=== PATIENT | female | born 1990 | race African-American/Black ===

== ENCOUNTER 2023-11-08 00:52 | Inpatient (IN) ==
--- NOTE | 2023-11-08 03:11 | History & Physical Report ---
Date of Service November 08, 2023 Assessment & Plan (1) 37 weeks gestation of : (2) Uterine contractions: Plan so far no evidence of active labor. offered dc home vs. obs here and recheck cx in 2hr (or sooner if pt feels sx escalating). couple seemed shocked she was not in labor given that she was having frequent ctx, explained definition of labor and typical findings exam and monitor that define active labor for which pts are admitted. she did not feel that she could walk or move around--her partner told me she cannot move--which is fine but she can be off monitor intermittently per unit policy. will need to reeval bp and if remains elevated with recommended parameters to check, will need to further evaluate that. nst reactive. addendum: nurse just called and said recheck at 2hr is unchanged cx. rec eval of bp sitting after 5-10min and if elevated will need to do further evaluation. either way will be up to pt if wants to stay for another 2hr period for recheck cx. History of Present Illness Chief Complaint: contractions Primary Care Provider: Margarita Acevedo MD 33yo at 37wks alla presents to L&D as unassigned patient with complaints of regular contractions. Patient notes contractions that are painful q2-3min, she can't "move" due to contractions. No rom. No vb. She is under the care of [facility] group but with her painful ctx x 1hr was afraid to drive 30min to their facility. Apparently she plans her delivery with [facility] in [place] and has induction scheduled for . She notes her has been complicated by GDM on insulin, says last u/s baby was 7#. She is taking only bedtime insulin but forgot to take tonight. She also missed her last appt and did not get gbs swab yet. Otherwise she says her has been uncomplicated. No available records or labs. OBH: x 3, all at term. Looking at her pmh in our system she apparently had preeclampsia in her 3rd pre gnancy. And with this had a cerclage that was removed at 28wks. Allergies Allergy/AdvReac Type Severity Reaction Status Date / Time Sulfa (Sulfonamide Allergy Intermediate Hives Verified 10/26/23 15:21 Antibiotics) sulfamethoxazole Allergy Intermediate Hives Verified 10/26/23 15:21 [From Bactrim] trimethoprim [From Bactrim] Allergy Intermediate Hives Verified 10/26/23 15:21 bee pollen AdvReac Hives Verified 10/26/23 15:21 Home Medications Medication Instructions Recorded Confirmed Type aspirin 81 mg capsule 81 mg PO DAILY 07/22/23 11/08/23 History insulin glargine 100 unit/mL 42 unit subcut PM 07/22/23 11/08/23 History subcutaneous cartridge [id number] 1 mg 1 tab PO DAILY 07/22/23 11/08/23 History tablet acetaminophen 500 mg capsule 500 mg PO Q6H PRN Pain 10/26/23 11/08/23 History diphenhydramine HCl 25 mg capsule 25 mg PO HS PRN Allergy Symptoms 10/26/23 11/08/23 History (Benadryl) Patient History Medical History (Updated 11/08/23 @ 03:06 by Pallavi Hamilton MD, FACOG) LGA (large for gestational age) fetus affecting management of mother measuring in 94% Cervical cerclage suture present Removed 2023 Pre-eclampsia with 3rd Incompetence of cervix with 3 rd Gestational diabetes insulin dependent Chronic sinusitis Snoring No pertinent past medical history No pertinent family history Surgical History No pertinent past surgical history Family History Mother Bipolar disorder Social History Smoking Status: Former smoker Tobacco Type: Cigarettes Hx Alcohol Use: No Hx Substance Use: No Preferred Language: Spanish Communication Ability: Effective Mva Still Operator Required: No Beliefs That Will Affect Care: None marital status: Current Living Situation: Family and Significant Other Feels Safe at Home: Yes Safety Concerns: Feels Safe At This Time Review of Systems as per Subjective / HPI Physical Exam Constitutional: WD/WN, vitals as above Respiratory: normal respiratory effort, lungs clear to auscultation Cardiovascular: Rate/Rhythm: regular rate and regular rhythm Gastrointestinal (Abdomen): soft gravid nt efw 7# Musculoskeletal: no edema Neurologic: grossly normal Psychiatric: A+Ox3, euthymic affect Genitourinary: Manual OB Exam: + cervical dilation (2), + cervical effacement 60% and + station (per nurse) -2 OB Exam Monitor Tracing: + external FHT monitor used, + external uterine monitor used (q2-4), + category I and + normal FHT variability Results & Data Vital Signs (Past 12 Hours) Vital Signs Temp Pulse Resp BP 11/08/23 02:07 93 H 144/77 H 11/08/23 01:12 93 H 141/80 H 11/08/23 01:11 99.7 F H 20 Coding Level of Care Code None Diagnoses 37 weeks gestation of Z3A.37 Uterine contractions O47.9
[2023-11-08 04:14] LABS: Basophils # (auto) 0.07 K/uL (0.00-0.20); Basophils % (auto) 0.4 %; Eosinophils # (auto) 0.08 K/uL (0.00-0.50); Eosinophils % (auto) 0.5 %; Hematocrit (blood only) 37.6 % (37.0-47.0); Hemoglobin 11.5 g/dl (12.0-16.0); Immature Granulocytes # (auto) 0.09 K/uL (0.01-0.20); Immature Granulocytes % (auto) 0.6 %; Lymphocytes # (auto) 2.61 K/uL (1.20-3.40); Lymphocytes % (auto) 16.6 %; Mean Corpuscular Hemoglobin 25.4 pg (25.0-34.0); Mean Corpuscular Hgb Conc 30.6 g/dL (32.0-36.0); Monocytes # (auto) 0.89 K/uL (0.11-0.59); Monocytes % (auto) 5.7 %; Neutrophils # (auto) 11.95 K/uL (1.40-6.50); Neutrophils % (auto) 76.2 %; Platelet Count 273 K/uL (130-400); RDW Coefficient of Variation 14.6 % (11.5-14.5); RDW Standard Deviation 43.5 fL (36.4-46.3); Red Blood Count 4.53 M/uL (4.20-5.40); White Blood Count 15.69 K/ul (4.8-10.8)
[2023-11-08 04:25] LABS: Albumin Globulin Ratio 1.1 (0.9-2); Albumin Level 3.7 gm/dl (3.4-5.0); BUN Creatinine Ratio 10.8 (10-20); Bilirubin Direct 0.1 mg/dl (0-0.2); Bilirubin,Total 0.3 mg/dl (0.2-1.0); Calcium 9.3 mg/dl (8.6-10.3); Creatinine Clr Calc Pharmacy 116.1 ml/min; Est GFR (African American) 121.7 ml/min; Globulin 3.5 gm/dl (2.5-4.0); Potassium 4.1 mmol/L (3.5-5.1); Total Protein 7.2 gm/dl (6.0-8.3)
[2023-11-08 04:48] LABS: Total Protein Urine Random 16.9 mg/dl (0-11.9)
[2023-11-08 04:54] LABS: Creatinine Urine Random 108.1 mg/dl; Protein Creatinine Ratio Urine 0.2 (0-0.2)
[2023-11-08] MEDS: ACETAMINOPHEN 500 MG TAB PO STA (06:34)
--- NOTE | 2023-11-08 06:36 | Labor Progress Brief Note ---
Date of Service November 08, 2023 Subjective Pt has denied ervin or visual change. Is complaining of worsening ctx and desires recheck cx. of note, bp was elevated at 335am and so labs done and urine prot/creat ratio, all normal. she does have history of gest htn in prior . records are here, difficult to read but indicate last us at 32wks efw 94%, if did have one thereafter I cannot see report. no gbs done. gdm on insulin. Assessment & Plan (1) 37 weeks gestation of : (2) Uterine contractions: (3) Gestational diabetes mellitus (GDM) requiring insulin: (4) LGA (large for gestational age) fetus affecting management of mother: Plan discussed with couple that quite meeting criteria for dx of gest htn. labs normal. if she desired could be dc'd home and present to her desired hospital since that is where she wanted to deliver. i suspect further evaluation may lead to dx of gest htn for which induction indicated after 37wks. I know the weather overnight has not be the best and so we of course can keep her here for the further evaluation and if criteria met, discussed next steps and she would stay an [facility]. She strongly expressed concern for worsening labor and pain and strongly expressed no desire to drive anywhere. She asked for pain mgmt and offered tylenol for now. She will have her repeat bp at the 4hr interval at 735am and if criteria met she is aware I am going home and further decisions will be made by my partner. I do think her cx is changing but this is my first exam. She very clearly emphasizes to me that she has had to have her water broke with her labor and inductions as she dilates slow. Once again I reminded her that she has to show labor by cervical change, in active phase, to 4-6cm, given her ega for us to move along her labor, based on ACOG guidelines. However, if a diagnosis is made warranting induction at 37wks then we would re-discuss options for management then. She would like tylenol now and to get in shower to soothe her discomforts. She has no severe range bps and I think that is reasonable and [place]. fhts categ 1. Physical Exam Constitutional: WD/WN, vitals as above Genitourinary: Manual OB Exam: + cervical dilation (2-3), + cervical effacement 70% and + station -2 OB Exam Monitor Tracing: + external FHT monitor used, + external uterine monitor used (q3-6), + category I (nst reactive) and + normal FHT variability Results & Data Vital Signs (Past 12 Hours) Vital Signs Temp Pulse Resp BP 11/08/23 06:04 93 H 11/08/23 06:04 145/77 H 11/08/23 04:37 94 H 11/08/23 04:37 151/89 H 11/08/23 03:48 88 144/69 H 11/08/23 03:38 93 H 145/70 H 11/08/23 02:07 93 H 144/77 H 11/08/23 01:12 93 H 141/80 H 11/08/23 01:11 99.7 F H 20 Coding Level of Care Code None Diagnoses 37 weeks gestation of Z3A.37 Uterine contractions O47.9 Gestational diabetes mellitus (GDM) requiring insulin O24.414 LGA (large for gestational age) fetus affecting management of mother O36.60X0
[2023-11-08] MEDS ORDERED: SODIUM CHLORIDE 0.9% 1,000 ML IV PRN (09:27)
[2023-11-08] MEDS ORDERED: LIDOCAINE 1% LOCAL 20 ML VIAL INFIL PRN (09:27)
[2023-11-08] MEDS ORDERED: DEXTROSE 50% 50 ML SYRINGE IV PRN (09:27)
[2023-11-08] MEDS ORDERED: OXYTOCIN 30 UNITS/NSS 30 UNITS/500 ML BAG IV PRN ×2 (09:27→20:34)
--- NOTE | 2023-11-08 09:42 | Labor Progress Brief Note ---
Date of Service November 08, 2023 Subjective Reason For Note: Change In Status Patient getting more uncomfortable with her contractions. FHT's -reactive contractions are now every 2-3 minutes cervix 4cm/90/-2 Review of Systems All systems reviewed & are unremarkable except as noted in HPI & below Assessment & Plan (1) Normal labor: Plan: IUP at 37 weeks who arrived in L&D unassigned. Was getting care through [facility] but because of the snow last night came to [facility] to be evaluated because of contractions since we are a closer facility. she has now made cervical change confirming labor will admit now patient requesting epidural analgesia GBS obtained today as she missed that appointment last week. will treat prophylactically with PCN G she has GDM on insulin and taking 42 units at bedtime only. blood sugars have been good. will start GDM labor protocol. anticipate vaginal Physical Exam 2 Constitutional: WD/WN, vitals as above Psychiatric: A+Ox3, euthymic affect Results & Data Vital Signs (Past 12 Hours) Vital Signs Temp Pulse Resp BP 11/08/23 07:52 90 11/08/23 07:52 138/85 11/08/23 06:04 93 H 11/08/23 06:04 145/77 H 11/08/23 04:37 94 H 11/08/23 04:37 151/89 H 11/08/23 03:48 88 144/69 H 11/08/23 03:38 93 H 145/70 H 11/08/23 02:07 93 H 144/77 H 11/08/23 01:12 93 H 141/80 H 11/08/23 01:11 99.7 F H 20
[2023-11-08] MEDS: LACTATED RINGER'S 1,000 ML IV PRN (10:32)
[2023-11-08] MEDS: PENICILLIN GK 6 MU in DEXTROSE 5% 250 ML IV STA (10:32)
--- NOTE | 2023-11-08 11:11 | Anesthesiology Consultation ---
Date of Service November 08, 2023 Assessment & Plan Chart Review Chart Review: Acceptable Risk for Labor Epidural Consults Requested none ASA ASA2 Proposed Anesthesia Anesthesia Type: Labor Epidural Risk / Benefits Reviewed With: PT / POA / Parent / Guardian, Accepts Plan and Informed Consent Obtained History Height/Weight Height: 5 ft 1 in Weight: 101.605 kg Allergies Allergy/AdvReac Type Severity Reaction Status Date / Time Sulfa (Sulfonamide Allergy Intermediate Hives Verified 10/26/23 15:21 Antibiotics) sulfamethoxazole Allergy Intermediate Hives Verified 10/26/23 15:21 [From Bactrim] trimethoprim [From Bactrim] Allergy Intermediate Hives Verified 10/26/23 15:21 bee pollen AdvReac Hives Verified 10/26/23 15:21 Medications Home Medications Medication Instructions Recorded Confirmed Last Taken aspirin 81 mg capsule 81 mg PO DAILY 07/22/23 11/08/23 10/31/23 insulin glargine 100 unit/mL 42 unit subcut PM 07/22/23 11/08/23 11/06/23 21:00 subcutaneous cartridge [id number] 1 mg 1 tab PO DAILY 07/22/23 11/08/23 11/07/23 09:00 tablet acetaminophen 500 mg capsule 500 mg PO Q6H PRN Pain 10/26/23 11/08/23 10/26/23 12:00 diphenhydramine HCl 25 mg capsule 25 mg PO HS PRN Allergy Symptoms 10/26/23 11/08/23 11/07/23 (Benadryl) Active Medications Generic Name Dose Route Start Last Admin Trade Name Freq PRN Reason Stop Dose Admin Lactated Ringer's 1,000 mls @ 125 mls/hr 11/08/23 09:27 11/08/23 10:32 Lr IV 11/10/23 09:26 999 mls/hr .Q8H PRN Administration L&D Protocol Protocol Past Medical History Medical History LGA (large for gestational age) fetus affecting management of mother measuring in 94% Cervical cerclage suture present Removed 2023 Pre-eclampsia with 3rd Incompetence of cervix with 3 rd Gestational diabetes insulin dependent Chronic sinusitis Snoring No pertinent past medical history No pertinent family history Exercise / Class Metabolic Activity II 4-5 Yardwork/Stairs/Walk up hill Past Family History Family History Mother Bipolar disorder Past Surgical History Surgical History No pertinent past surgical history Past Anesthesia History No Hx of Anesthesia Complications and No Family Hx of Anesthesia Complications History of PONV No Hx of PONV and No Hx of Motion Sickness Social History Smoking Status: Former smoker Hx Alcohol Use: No Hx Substance Use: No substance use type: does not use Physical Exam Vital Signs Last Vital Signs Temp 99.7 F H 11/08/23 01:11 Pulse 92 H 11/08/23 10:05 Resp 20 11/08/23 11:00 BP 139/75 11/08/23 10:05 ENMT Mouth: no dentition abnormality Thyromental Distance: > or= 3.5 Finger Breadths Mallampati Class: II Neck normal visual inspection Respiratory normal respiratory effort Auscultation: lungs clear to auscultation bilaterally Cardiovascular Rate/Rhythm: regular rate and regular rhythm Testing Laboratory Results 11/08/23 03:58 11/08/23 03:58 11/08/23 09:42 POC Glucose 77
[2023-11-08] MEDS ORDERED: diphenhydrAMINE 50 MG/ML VIAL IV PRN ×2 (11:28→17:15)
[2023-11-08] MEDS ORDERED: ePHEDrine sulfate 50 MG/ML AMP IV PRN ×2 (11:28→17:15)
[2023-11-08] MEDS ORDERED: NALOXONE HCL 1 MG in SODIUM CHLORIDE 0.9% 1,000 ML IV PRN ×2 (11:28→17:15)
[2023-11-08] MEDS ORDERED: SODIUM CHLORIDE 0.9% PF INJ 10 ML VIAL EPI PRN ×2 (11:28→17:15)
[2023-11-08] MEDS ORDERED: NALBUPHINE HCL 5 MG in SYRINGE 0 ML IV PRN ×2 (11:28→17:15)
[2023-11-08] MEDS ORDERED: ONDANSETRON INJ 2 MG/ML 2 ML VIAL IV PRN ×2 (11:28→17:15)
[2023-11-08] MEDS ORDERED: NALOXONE HCL 0.4 MG/1 ML VIAL/CARP IV PRN ×2 (11:28→17:15)
[2023-11-08] MEDS ORDERED: LIDOCAINE 2% MPF LOCAL 5 ML VIAL EPI PRN ×2 (11:28→17:15)
[2023-11-08] MEDS ORDERED: fentaNYL citrate PF 100 MCG/2 ML VIAL EPI PRN ×2 (11:28→17:15)
[2023-11-08] MEDS ORDERED: ROPIVACAINE 0.5% PF 5 MG/ML 20 ML VIAL EPI PRN ×2 (11:28→17:15)
[2023-11-08] MEDS: fentaNYL citrate PF 100 MCG/2 ML VIAL ONE (11:29)
[2023-11-08] MEDS: BUPIVACAINE 0.25% PF 30 ML VIAL ONE (11:29)
[2023-11-08] MEDS: LIDOCAINE 2%/EPINEPHRINE 1:200,000 20 ML PF ONE (11:29)
[2023-11-08] MEDS: SODIUM CHLORIDE 0.9% PF INJ 10 ML VIAL ONE (11:30)
[2023-11-08] MEDS: fentANYL 2 MCG/ML BUPIVacaine 0.125%-NSS 100ML BAG ONE (11:31)
[2023-11-08] MEDS: DEXTROSE 5% 1,000 ML IV PRN (12:23)
[2023-11-08] MEDS: INSULIN REGULAR 250 UNITS in SODIUM CHLORIDE 0.9% 247.5 ML IV PRN (12:24)
[2023-11-08] MEDS: OXYTOCIN 30 UNITS/NSS 30 UNITS/500 ML BAG IV PRN (13:48)
[2023-11-08] MEDS: PENICILLIN GK 3 MU in DEXTROSE 5% 100 ML IV PRN (14:31)
[2023-11-08] MEDS: fentaNYL citrate PF 100 MCG/2 ML VIAL EPI STA ×2 (14:35→18:00)
[2023-11-08] MEDS: BUPIVACAINE 0.25% PF 30 ML VIAL EPI PRN ×2 (14:36→18:11)
--- NOTE | 2023-11-08 14:49 | Anesthesia Procedure Note ---
Date of Service November 08, 2023 Anesthesia Epidural Re-Dose Vital Signs Temp Pulse Resp BP Pulse Ox 98.6 F 85 20 128/80 98 11/08/23 13:51 11/08/23 14:45 11/08/23 13:51 11/08/23 14:45 11/08/23 14:44 Notes Pain Intensity: 5 Dilatation (cm): 4.0 Effacement (%): 100 Called by nursing to evaluate epidural as the patient is having increased pain. The epidural was re-dosed with the following medications after negative aspiration of the epidural catheter for CSF/HEME. 3mL of 0.25% Bupivacaine and 75mcg of fentanyl After Epidural Re-Dose Mental Status: alert / awake / arousable Pain: improving with treatment Airway Patency, RR, SpO2: stable & adequate BP & HR: stable & adequate
[2023-11-08] MEDS: ePHEDrine sulfate 50 MG/ML AMP ONE (14:58)
[2023-11-08] MEDS ORDERED: NURSING L&D Epidural Breakthrough Pain Update ONE (16:16)
[2023-11-08] MEDS: fentANYL 2 MCG/ML BUPIVacaine 0.125%-NSS 100ML BAG EPI PRN (16:48)
[2023-11-08] MEDS ORDERED: fentANYL 2 MCG/ML BUPIVacaine 0.125%-NSS 100ML BAG EPI PRN ×2 (17:15→18:19)
--- NOTE | 2023-11-08 17:21 | Anesthesia Procedure Note ---
Date of Service November 08, 2023 Anesthesia Epidural Re-Dose Vital Signs Temp Pulse Resp BP Pulse Ox 98.1 F 90 20 134/65 96 11/08/23 17:06 11/08/23 17:20 11/08/23 17:01 11/08/23 17:20 11/08/23 17:19 Notes Pain Intensity: 9 Dilatation (cm): 4.0 Effacement (%): 100 Called by nursing to evaluate epidural as the patient is having increased pain. The epidural was re-dosed with the following medications after negative aspiration of the epidural catheter for CSF/HEME. 4mL of 0.25% Bupivacaine After Epidural Re-Dose Mental Status: alert / awake / arousable Pain: improving with treatment Airway Patency, RR, SpO2: stable & adequate BP & HR: stable & adequate
[2023-11-08] MEDS: LIDOCAINE 2%/EPINEPHRINE 1:200,000 20 ML PF EPI STA ×2 (18:00→18:01)
[2023-11-08] MEDS: BUPIVACAINE 0.25% PF 30 ML VIAL EPI STA ×2 (18:00)
[2023-11-08] MEDS: SODIUM CHLORIDE 0.9% PF INJ 10 ML VIAL EPI STA ×2 (18:00→18:01)
[2023-11-08] MEDS ORDERED: bisacodyL 10 MG SUPP PR PRN (20:34)
[2023-11-08] MEDS ORDERED: HYDROCORTISONE ACETATE 25 MG SUPP PR PRN (20:34)
--- NOTE | 2023-11-08 20:36 | Anesthesia Procedure Note ---
Date of Service November 08, 2023 Anesthesia Post Epidural Note Vital Signs Vital Signs: Temp Pulse Resp BP Pulse Ox 36.8 C 100 H 18 119/79 97 11/08/23 19:06 11/08/23 20:32 11/08/23 19:06 11/08/23 20:32 11/08/23 20:19 Pain Intensity Abdomen: Pain Intensity: 2 Notes Mental Status: alert / awake / arousable and participated in evaluation Nausea / Vomiting: adequately controlled Pain: adequately controlled Airway Patency, RR, SpO2: stable & adequate BP & HR: stable & adequate Hydration State: stable & adequate Neuraxial Anesthesia: was administered and sensory block is resolving Anesthetic Complications: no major complications apparent Epidural: Removed without complications and With tip intact
--- NOTE | 2023-11-08 20:55 | Delivery Summary ---
Vaginal Delivery Summary Date of Service November 08, 2023 Vaginal Delivery Summary and 1st Degree LAC Patient is a 5 para 3-0-1-3 female EDC of 11/29/2025 who presented at 37 weeks with regular contractions. She is a patient at [facility] but lives in [place] and was having regular contractions during a snowstorm that was concerned about driving to [place] with the inclement weather. Of note, her was complicated by GDM on insulin. GBS status was unknown as she missed her 36-week appointment at which time she was also to have another growth scan. Growth scan at 32 weeks was 94th percentile. She eventually made cervical change to 4 cm dilation & 100% effacement. She requested epidural analgesia which was moderately effective through out her labor. She required Pitocin augmentation of her labor as her contractions spaced out after the epidural was administered. Membranes were then ruptured for clear fluid she progressed slowly to 7 cm dilation. After this, she progressed quickly to full dilation with the urge to push. She pushed effectively over intact perineum for delivery of a viable male infant. After the head was delivered, a double nuchal cord was reduced. Shoulders initially were tight, but with 1 good push the rest the infant delivered without difficulty. He was placed on the mother's abdomen for further attention and drying. He was vigorous, crying, and moving all 4 limbs. After 1 minute the cord was clamped and cut. After cord blood was obtained, the placenta was expressed intact with a three-vessel cord. Of note there was a small accessory lobe present as well. bleeding was controlled with dilute Pitocin and fundal massage. A first-degree perineal laceration was repaired with 3-0 chromic in usual fashion. Estimated blood loss was 250 cc. Mother and infant were doing well after delivery. [facility] Vaginal Delivery Charge Delivery Type Details: and 1st Degree LAC
[2023-11-08] MEDS: oxyCODONE/ACETAMINOPHEN 5mg/325mg TAB PO PRN (22:33)
[2023-11-08] MEDS: BENZOCAINE 20% SPRY 85 APPLN/85 GM CAN EXT PRN (22:33)
[2023-11-09] MEDS: CALCIUM CARBONATE 500 MG CHEWABLE TAB PO PRN (05:38)
[2023-11-09] MEDS: IBUPROFEN 600 MG TAB PO PRN (05:42)
--- NOTE | 2023-11-09 07:12 | Obstetrical Progress Note ---
Date of Service November 09, 2023 Assessment & Plan (1) Encounter for care and examination after delivery: satisfactory course continue current care plan Subjective Ambulation: ambulating normally Voiding: no voiding problems Passing Gas:: Yes Diet Tolerance:: regular diet Lochia:: Moderate Feeding Type:: breast feeding no complaints this AM except cramping with nursing Review of Systems All systems reviewed & are unremarkable except as noted in HPI & below Physical Exam Constitutional WD/WN, vitals as above Psychiatric A+Ox3, euthymic affect Genitourinary OB Exam Abdomen: + fundal height Fundus: + firm and + relation to umbilicus (at U) Results & Data Vital Signs (Past 12 Hours) Vital Signs Temp Pulse Pulse Resp BP BP Pulse Ox 11/09/23 03:35 97.5 F L 85 17 135/91 98 11/08/23 23:45 97.9 F 83 16 138/87 99 11/08/23 22:29 91 H 11/08/23 22:29 148/80 H 11/08/23 22:12 89 11/08/23 22:12 130/73 11/08/23 21:32 94 H 11/08/23 21:32 139/79 11/08/23 21:23 88 11/08/23 21:23 137/77 11/08/23 20:49 97 H 11/08/23 20:49 135/80 11/08/23 20:32 100 H 11/08/23 20:32 119/79 11/08/23 20:24 115 H 11/08/23 20:24 109/73 11/08/23 20:19 97 11/08/23 20:19 108 H 11/08/23 20:14 99 11/08/23 20:14 115 H 11/08/23 20:10 106 H 11/08/23 20:10 136/78 11/08/23 20:09 100 11/08/23 20:09 110 H 11/08/23 20:04 98 11/08/23 20:04 108 H 11/08/23 20:01 90 11/08/23 20:01 100 H 11/08/23 19:59 99 11/08/23 19:59 97 H 11/08/23 19:55 88 11/08/23 19:55 131/63 11/08/23 19:54 98 11/08/23 19:54 88 11/08/23 19:50 94 11/08/23 19:50 96 H 11/08/23 19:49 95 11/08/23 19:49 95 H 11/08/23 19:44 95 11/08/23 19:44 91 H 11/08/23 19:41 92 H 11/08/23 19:41 139/64 11/08/23 19:39 99 11/08/23 19:39 99 H 11/08/23 19:34 98 11/08/23 19:34 97 H 11/08/23 19:29 96 11/08/23 19:29 95 H 11/08/23 19:24 97 11/08/23 19:24 97 H 11/08/23 19:24 139/66 11/08/23 19:19 100 11/08/23 19:19 88 11/08/23 19:14 96 11/08/23 19:14 96 H O2 Del Method 11/09/23 03:35 Room Air 11/08/23 23:45 Room Air 11/08/23 22:29 11/08/23 22:29 11/08/23 22:12 11/08/23 22:12 11/08/23 21:32 11/08/23 21:32 11/08/23 21:23 11/08/23 21:23 11/08/23 20:49 11/08/23 20:49 11/08/23 20:32 11/08/23 20:32 11/08/23 20:24 11/08/23 20:24 11/08/23 20:19 11/08/23 20:19 11/08/23 20:14 11/08/23 20:14 11/08/23 20:10 11/08/23 20:10 11/08/23 20:09 11/08/23 20:09 11/08/23 20:04 11/08/23 20:04 11/08/23 20:01 11/08/23 20:01 11/08/23 19:59 11/08/23 19:59 11/08/23 19:55 11/08/23 19:55 11/08/23 19:54 11/08/23 19:54 11/08/23 19:50 11/08/23 19:50 11/08/23 19:49 11/08/23 19:49 11/08/23 19:44 11/08/23 19:44 11/08/23 19:41 11/08/23 19:41 11/08/23 19:39 11/08/23 19:39 11/08/23 19:34 11/08/23 19:34 11/08/23 19:29 11/08/23 19:29 11/08/23 19:24 11/08/23 19:24 11/08/23 19:24 11/08/23 19:19 11/08/23 19:19 11/08/23 19:14 11/08/23 19:14
[2023-11-09 07:29] LABS: Hematocrit (blood only) 33.7 % (37.0-47.0); Hemoglobin 10.7 g/dl (12.0-16.0); Mean Corpuscular Hemoglobin 25.9 pg (25.0-34.0); Mean Corpuscular Hgb Conc 31.8 g/dL (32.0-36.0); Mean Corpuscular Volume 81.6 fL (80.0-100.0); Mean Platelet Volume 11.5 fL (9.4-12.4); Platelet Count 241 K/uL (130-400); RDW Coefficient of Variation 14.6 % (11.5-14.5); RDW Standard Deviation 43.1 fL (36.4-46.3); Red Blood Count 4.13 M/uL (4.20-5.40); White Blood Count 15.08 K/ul (4.8-10.8)
[2023-11-09] MEDS: PRENATAL VITAMIN 1 TAB PO SCH (08:35)
[2023-11-09] MEDS: DOCUSATE SODIUM 100 MG CAP PO SCH (08:35)
[2023-11-09] MEDS: bisacodyL 5 MG TABEC PO SCH (19:56)
[2023-11-10 06:26] LABS: Hematocrit (blood only) 32.8 % (37.0-47.0); Hemoglobin 10.2 g/dl (12.0-16.0)
[2023-11-10] MEDS: DIPHTHER/TETAN/PERTUS Vaccine (Tdap, Adol/Adult) 0.5mL IM ONE (07:20)
--- NOTE | 2023-11-10 08:19 | Obstetrical Progress Note ---
Date of Service November 10, 2023 Assessment & Plan (1) Encounter for care and examination after delivery: Plan: Doing well today Plan for discharge Admission and Anticipated Discharge Date Admission Date: November 08, 2023 Supervising Physician Co-Signing Physician Notes Resident Physician Supervision Note: I interviewed and examined the patient. Discussed with Dr. Denney and agree with findings and plan as documented in the note. Any exceptions or clarifications are listed here: [None] Documented By: Greta Bailey MD, FACOG Subjective 33 yo post day 2 s/p Ambulation: ambulating normally Voiding: no voiding problems Passing Gas:: Yes Diet Tolerance:: regular diet Lochia:: Small Feeding Type:: breast feeding Current Pain Level: minimal Resting comfortably this AM in NAD. Denies DIAZ, CP, SOB, N/V/D, LE pain/swelling. Review of Systems Review of Systems: reviewed, per HPI Physical Exam Physical Exam: General: patient resting comfortably, NAD, non-toxic in appearance, answers questions appropriately. Skin: warm, dry, intact HEENT: NC/AT, anicteric sclera, conjunctiva without injection, moist mucus membranes. Heart: +S1/S2, regular, no m/r/g Lungs: equal air entry bilaterally, no rales/rhonchi/wheezes Abd: +BS, soft, NT/ND, uterine fundus firm at umbilicus Ext: warm, no clubbing/cyanosis or edema, Bassam's neg. Neuro: nonfocal, speech intact, no facial droop, moving all extremities on comm and. Results & Data Vital Signs (Past 12 Hours) Vital Signs Temp Pulse Resp BP O2 Del Method 11/10/23 00:38 36.4 C L 78 14 133/83 Room Air
[2023-11-10] MEDS: MEASLES, MUMPS & RUBELLA VIRUS VACCINE (MMR) VIAL SQ ONE (10:33)
== END 2023-11-10 11:34 | disposition home or self-care (01) | DRG 807 ==
LOC: OPB 00:52 → 4S1 01:00 → 4E2 23:40

== ENCOUNTER 2023-11-14 18:26 | Inpatient (IN) ==
--- NOTE | 2023-11-14 18:58 | History & Physical Report ---
Date of Service November 14, 2023 Assessment & Plan (1) Pre-eclampsia, : Plan Admit for mag prophylaxis for pet. Given she has already had 1gm of mag, will give a 2gm bolus and then 2 gm per hour. berman for I/O. Monitor pressures. scds. seizure precautions. mag level 6 hours after bolus. History of Present Illness Chief Complaint: elevated blood pressure, swelling Primary Care Provider: Margarita Acevedo MD Patient is a 33yowf who had an uncomplicated vaginal delivery on 11/08. She had some borderline elevated blood pressures during labor but never received a diagnosis or treatment. She does have a hx of pet with her third . She presented to the ED with concerns for pet. Notes swelling started about 2 days after delivery. Today had some cp, ervin and blurry vision. Took bp at home and 150/90 and presented to the ED. First BP on admission was 184/100. Was treated with labetolol in the ED and 1gm of Mag. BPS here are 140-150s/80-90s. She notes ervin started today, not improved with anything. Labs are all wnl. Given her hx, elevated blood pressure on admission, being admitted for Mag for PP pet. Her delivery on 11/08 was uncomplicated. She is weaning breast feeding and notes breast engorgement. She is unsure if some of her cp/shoulder pain related to this. She had her pnc with [facility], but presented here for labor because of weather. Allergies Allergy/AdvReac Type Severity Reaction Status Date / Time Sulfa (Sulfonamide Allergy Intermediate Hives Verified 10/26/23 15:21 Antibiotics) sulfamethoxazole Allergy Intermediate Hives Verified 10/26/23 15:21 [From Bactrim] trimethoprim [From Bactrim] Allergy Intermediate Hives Verified 10/26/23 15:21 bee pollen AdvReac Hives Verified 10/26/23 15:21 Home Medications Medication Instructions Recorded Confirmed Type iscldoaa-[id number] 1 mg 1 tab PO DAILY 07/22/23 11/14/23 History tablet diphenhydramine HCl 25 mg capsule 25 mg PO HS PRN Allergy Symptoms 10/26/23 11/14/23 History (Benadryl) ibuprofen 600 mg tablet 600 mg PO Q6H PRN pain #60 tabs 11/09/23 11/14/23 Rx Patient History Medical History LGA (large for gestational age) fetus affecting management of mother measuring in 94% Cervical cerclage suture present Removed 2023 Pre-eclampsia with 3rd Incompetence of cervix with 3 rd Gestational diabetes insulin dependent Chronic sinusitis Snoring No pertinent past medical history No pertinent family history Surgical History No pertinent past surgical history Family History Mother Bipolar disorder Social History Smoking Status: Never smoker Tobacco Type: Cigarettes Hx Alcohol Use: No Hx Substance Use: No Preferred Language: Faroese Communication Ability: Effective 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 Beliefs That Will Affect Care: None marital status: Current Living Situation: Significant Other Current Living Situation Comment: Rodrig[facility] Sweet Feels Safe at Home: Yes Assistive Devices: None 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 Review of Systems All systems reviewed & are unremarkable except as noted in HPI & below Physical Exam Constitutional: WD/WN, vitals as above Respiratory: normal respiratory effort, lungs clear to auscultation Cardiovascular: RRR, no murmur, no edema Extremities: + edema (+1 at worst); no calf tenderness Gastrointestinal (Abdomen): soft, nt, no ruq pain Neurologic: patellar DTR's 2+ bilat, sensation intact Psychiatric: A+Ox3, euthymic affect Results & Data Vital Signs (Past 12 Hours) Vital Signs Pulse BP Pulse Ox 11/14/23 18:51 100 11/14/23 18:51 87 11/14/23 18:51 158/87 H 11/14/23 18:46 100 11/14/23 18:46 80 11/14/23 18:46 160/90 H 11/14/23 18:41 100 11/14/23 18:41 84 11/14/23 18:41 154/88 H 11/14/23 18:38 91 11/14/23 18:38 85 11/14/23 18:36 91 H 145/81 H 100 11/14/23 18:31 84 100 Coding Level of Care Code 91255 INT INP/OBS CARE MIN Diagnoses Pre-eclampsia, O14.95
[2023-11-14] MEDS: LACTATED RINGER'S 1,000 ML IV SCH (19:04)
[2023-11-14] MEDS: MAGNESIUM SULFATE / WTR 40 GM/1,000 ML BAG IV SCH (19:04)
[2023-11-14] MEDS: MAG SULFATE 4GM BOLUS FROM BAG IV ONE (19:08)
[2023-11-14] MEDS: ACETAMINOPHEN 325 MG TAB PO ONE (21:11)
[2023-11-15] MEDS: ACETAMINOPHEN 325 MG TAB PO ONE ×2 (00:52→06:49)
--- NOTE | 2023-11-15 07:25 | Obstetrical Progress Note ---
Date of Service November 15, 2023 Assessment & Plan (1) Pre-eclampsia, : Plan Doing well. Good uop, blood pressures have been well controlled. Continue mag for 24 hours. Then can d/c. Then will need to monitor blood pressures for need for antihypertensives. Day #:: 7 Subjective Ambulation: limited ambulation Voiding: berman catheter in place Passing Gas:: Yes Diet Tolerance:: clear liquids Was able to get some rest overnight. However, woke up this am with a pounding ervin, got tylenol and much better. She has had excellent urine output. Physical Exam Constitutional WD/WN, vitals as above Cardiovascular Extremities: + edema (tr); no calf tenderness Gastrointestinal (Abdomen) soft, nt, nd, no ruq pain Psychiatric A+Ox3, euthymic affect Results & Data Vital Signs (Past 12 Hours) Vital Signs Temp Pulse Resp BP Pulse Ox O2 Del Method 11/15/23 07:17 80 100 11/15/23 07:12 76 100 11/15/23 07:09 83 90 11/15/23 07:07 79 100 11/15/23 07:03 81 128/74 11/15/23 07:02 83 100 11/15/23 06:57 82 100 11/15/23 06:51 79 100 11/15/23 06:50 89 90 11/15/23 06:48 80 129/76 11/15/23 06:46 82 100 11/15/23 06:41 81 100 11/15/23 06:36 83 100 11/15/23 06:31 81 100 11/15/23 06:26 74 100 11/15/23 06:21 75 100 11/15/23 06:16 79 100 11/15/23 06:11 78 100 11/15/23 06:06 72 100 11/15/23 06:04 20 11/15/23 06:03 71 137/70 11/15/23 06:01 68 100 11/15/23 05:56 73 100 11/15/23 05:51 69 100 11/15/23 05:46 70 99 11/15/23 05:41 69 98 11/15/23 05:36 71 100 11/15/23 05:31 68 100 11/15/23 05:26 68 100 11/15/23 05:21 70 100 02/24/24 05:16 69 100 11/15/23 05:11 69 100 24 05:06 67 100 11/15/23 05:05 20 11/15/23 05:03 67 123/72 11/15/23 05:01 72 100 11/15/23 04:56 71 100 11/15/23 04:51 72 100 11/15/23 04:46 69 100 11/15/23 04:41 71 100 11/15/23 04:36 71 100 11/15/23 04:31 72 100 11/15/23 04:26 75 100 11/15/23 04:21 70 99 11/15/23 04:20 61 92 11/15/23 04:16 71 98 11/15/23 04:11 71 98 11/15/23 04:06 69 100 11/15/23 04:04 16 11/15/23 04:03 64 120/66 11/15/23 04:01 71 99 11/15/23 03:56 74 98 11/15/23 03:51 68 100 11/15/23 03:46 67 100 24 03:41 67 100 11/15/23 03:36 66 100 11/15/23 03:31 67 100 11/15/23 03:26 67 100 11/15/23 03:21 74 100 11/15/23 03:16 65 100 11/15/23 03:14 82 88 L 11/15/23 03:11 69 100 11/15/23 03:06 68 100 11/15/23 03:05 20 11/15/23 03:03 68 129/67 11/15/23 03:01 68 99 24 02:56 66 100 24 02:51 67 99 24 02:46 68 100 24 02:41 67 100 24 02:36 66 100 24 02:31 65 100 24 02:26 66 97 24 02:21 67 100 24 02:16 70 100 24 02:11 69 99 24 02:06 71 99 24 02:05 18 11/15/23 02:03 65 137/77 11/15/23 02:01 68 100 11/15/23 01:56 70 100 11/15/23 01:51 67 100 11/15/23 01:46 69 100 11/15/23 01:41 67 100 11/15/23 01:36 64 100 11/15/23 01:31 67 100 11/15/23 01:26 68 100 11/15/23 01:21 69 100 11/15/23 01:16 69 100 11/15/23 01:11 69 100 11/15/23 01:06 73 100 11/15/23 01:05 20 11/15/23 01:05 75 132/83 11/15/23 01:01 72 100 11/15/23 00:56 76 100 11/15/23 00:51 83 100 11/15/23 00:48 81 93 11/15/23 00:46 77 100 11/15/23 00:41 100 11/15/23 00:41 82 11/15/23 00:41 83 83 L 11/15/23 00:36 80 100 11/15/23 00:33 84 91 11/15/23 00:31 80 100 11/15/23 00:26 79 100 11/15/23 00:21 78 100 11/15/23 00:16 83 100 11/15/23 00:14 89 91 11/15/23 00:11 79 99 11/15/23 00:06 82 86 L 11/15/23 00:05 36.7 C 11/15/23 00:05 18 11/15/23 00:03 77 139/76 11/15/23 00:01 82 100 11/14/23 23:56 100 11/14/23 23:56 85 11/14/23 23:51 100 11/14/23 23:51 77 11/14/23 23:46 100 11/14/23 23:46 75 11/14/23 23:41 100 11/14/23 23:41 80 11/14/23 23:36 100 11/14/23 23:36 79 11/14/23 23:31 99 11/14/23 23:31 77 11/14/23 23:26 100 11/14/23 23:26 73 11/14/23 23:21 100 11/14/23 23:21 73 11/14/23 23:16 98 11/14/23 23:16 74 11/14/23 23:11 99 11/14/23 23:11 75 11/14/23 23:06 98 11/14/23 23:06 74 11/14/23 23:05 20 11/14/23 23:03 75 11/14/23 23:03 124/66 11/14/23 23:01 99 11/14/23 23:01 73 11/14/23 22:56 99 11/14/23 22:56 75 11/14/23 22:51 99 11/14/23 22:51 73 11/14/23 22:46 99 11/14/23 22:46 74 11/14/23 22:41 100 11/14/23 22:41 73 11/14/23 22:36 100 11/14/23 22:36 74 11/14/23 22:31 100 11/14/23 22:31 75 11/14/23 22:26 100 11/14/23 22:26 76 11/14/23 22:21 100 11/14/23 22:21 80 11/14/23 22:16 100 11/14/23 22:16 88 11/14/23 22:11 100 11/14/23 22:11 86 11/14/23 22:06 100 11/14/23 22:06 81 11/14/23 22:05 16 11/14/23 22:01 100 11/14/23 22:01 88 11/14/23 22:01 149/81 H 11/14/23 21:56 100 11/14/23 21:56 84 11/14/23 21:56 143/78 H 11/14/23 21:51 100 11/14/23 21:51 82 11/14/23 21:51 146/78 H 11/14/23 21:46 100 11/14/23 21:46 88 11/14/23 21:46 146/82 H 11/14/23 21:41 100 11/14/23 21:41 85 11/14/23 21:41 85 11/14/23 21:41 138/73 11/14/23 21:36 100 11/14/23 21:36 88 11/14/23 21:36 86 11/14/23 21:36 140/77 11/14/23 21:31 100 11/14/23 21:31 87 11/14/23 21:31 139/75 11/14/23 21:26 100 11/14/23 21:26 87 11/14/23 21:26 149/81 H 11/14/23 21:22 89 L 11/14/23 21:22 87 11/14/23 21:21 100 11/14/23 21:21 88 11/14/23 21:21 148/81 H 11/14/23 21:16 100 11/14/23 21:16 87 11/14/23 21:16 145/80 H 11/14/23 21:11 100 11/14/23 21:11 86 11/14/23 21:11 82 11/14/23 21:11 138/78 11/14/23 21:06 100 11/14/23 21:06 85 11/14/23 21:06 82 11/14/23 21:06 132/71 11/14/23 21:05 18 11/14/23 21:01 100 11/14/23 21:01 88 11/14/23 21:01 90 11/14/23 21:01 127/74 11/14/23 20:56 100 11/14/23 20:56 80 11/14/23 20:56 117/68 11/14/23 20:51 100 11/14/23 20:51 79 11/14/23 20:51 125/70 11/14/23 20:46 100 11/14/23 20:46 79 11/14/23 20:46 124/70 11/14/23 20:41 100 11/14/23 20:41 81 11/14/23 20:41 126/74 11/14/23 20:36 100 11/14/23 20:36 83 11/14/23 20:36 87 11/14/23 20:36 124/74 11/14/23 20:32 90 11/14/23 20:32 89 11/14/23 20:31 100 11/14/23 20:31 87 11/14/23 20:31 81 11/14/23 20:31 122/66 11/14/23 20:26 100 11/14/23 20:26 92 H 11/14/23 20:26 89 02/23/24 20:26 120/67 11/14/23 20:22 91 11/14/23 20:22 83 11/14/23 20:21 100 11/14/23 20:21 87 11/14/23 20:21 130/70 11/14/23 20:17 83 L 11/14/23 20:17 91 H 11/14/23 20:16 100 11/14/23 20:16 83 11/14/23 20:16 139/76 11/14/23 20:15 18 11/14/23 20:11 100 11/14/23 20:11 86 11/14/23 20:11 141/79 H 11/14/23 20:06 100 11/14/23 20:06 80 11/14/23 20:06 90 11/14/23 20:06 140/76 11/14/23 20:01 100 11/14/23 20:01 87 11/14/23 20:01 86 11/14/23 20:01 131/70 11/14/23 20:00 18 11/14/23 19:56 100 11/14/23 19:56 84 11/14/23 19:56 83 11/14/23 19:56 136/68 11/14/23 19:52 86 11/14/23 19:52 137/72 11/14/23 19:51 100 11/14/23 19:51 91 H 11/14/23 19:46 100 11/14/23 19:46 95 H 11/14/23 19:46 158/85 H 11/14/23 19:45 18 11/14/23 19:44 37.0 C 18 11/14/23 19:44 18 11/14/23 19:44 37.0 C 18 100 Room Air 11/14/23 19:42 84 11/14/23 19:42 160/77 H 11/14/23 19:41 100 11/14/23 19:41 72 11/14/23 19:39 91 11/14/23 19:39 87 11/14/23 19:36 100 11/14/23 19:36 81 11/14/23 19:36 83 11/14/23 19:36 149/72 H 11/14/23 19:31 100 11/14/23 19:31 88 02/23/24 19:31 85 11/14/23 19:31 153/75 H 11/14/23 19:30 18 11/14/23 19:26 100 11/14/23 19:26 86 11/14/23 19:26 150/70 H
[2023-11-15] MEDS: IBUPROFEN 600 MG TAB PO ONE (10:59)
[2023-11-15] MEDS: ACETAMINOPHEN 500 MG TAB PO PRN (14:24)
[2023-11-15] MEDS: LABETALOL HCL 100 MG TAB ONE (15:01)
[2023-11-15] MEDS: IBUPROFEN 600 MG TAB PO PRN (19:51)
[2023-11-15] MEDS: LABETALOL HCL 200 MG TAB PO SCH (22:58)
--- NOTE | 2023-11-16 07:09 | Obstetrical Progress Note ---
Date of Service November 16, 2023 Assessment & Plan (1) Pre-eclampsia, : Plan: mag stopped last night, currently on labetalol 200mg q12. Will see how BPs are throughout the day, can consider dc later this afternoon if remains stable otherwise hopefully dc tomorrow Admission and Anticipated Discharge Date Admission Date: November 14, 2023 Subjective Mag stopped last evening around 7pm, labetalol 200mg q12 started yesterday afternoon w/ good response. Some discomfort from breast engorgement but improved w/ pain meds. Tolerating po. Voiding w/o difficulty. Denies s/s PET Physical Exam Respiratory: normal respiratory effort, lungs clear to auscultation Cardiovascular: RRR, no murmur, no edema Musculoskeletal: BLE symmetric, NT, nonerythematous Results & Data Vital Signs (Past 12 Hours) Vital Signs Temp Pulse Resp BP Pulse Ox O2 Del Method 11/16/23 03:00 98.2 F 87 16 149/73 H 97 Room Air 11/15/23 23:02 98.4 F 83 16 126/83 97 Room Air 11/15/23 20:30 98.2 F 73 16 133/88 98 Room Air PG Care Time/CCT Total # of Minutes Spent Total Time Spent with Patient: Total time spent is greater than 50% in coordination of care (as documented) at patient's floor/unit and/or counseling patient: Coding Level of Care Code None Diagnoses Pre-eclampsia, O14.95
[2023-11-16 13:06] VITALS: PULSE 84; RESP 16; TEMP 98.6; O2SAT 99
[2023-11-16 17:05] VITALS: BP 124/84
--- NOTE | 2023-11-19 16:19 | Discharge Summary ---
Date of Service November 19, 2023 Admission HPI Per Admitting Provider Patient is a 33yowf who had an uncomplicated vaginal delivery on 11/08. She had some borderline elevated blood pressures during labor but never received a diagnosis or treatment. She does have a hx of pet with her third . She presented to the ED with concerns for pet. Notes swelling started about 2 days after delivery. Today had some cp, ervin and blurry vision. Took bp at home and 150/90 and presented to the ED. First BP on admission was 184/100. Was treated with labetolol in the ED and 1gm of Mag. BPS here are 140-150s/80-90s. She notes ervin started today, not improved with anything. Labs are all wnl. Given her hx, elevated blood pressure on admission, being admitted for Mag for PP pet. Her delivery on 11/08 was uncomplicated. She is weaning breast feeding and notes breast engorgement. She is unsure if some of her cp/shoulder pain related to this. She had her pnc with [facility], but presented here for labor because of weather. Hospital Course (1) Pre-eclampsia, : Plan Patient was admitted on 11/14 in the late evening, her labs were normal and she underwent 24 hours of magnesium sulfate prophylaxis. she tolerated this well with good uop. She was subsequently started on labetolol 200mg bid and pressures remained good on this. Mag was d/c the evening of 11/15. She was d/c late in the evening on 11/16. She has a f/u appt with her primary cobol developer--[facility] in [place] already scheduled for . Preeclampsia signs/symptoms were reviewed with the patient and she was advised to call us or primary ob with any concerns. Coding Level of Care Code 11114 IN/OBS DISCH 30 MIN/LESS Diagnoses Pre-eclampsia, O14.95
== END 2023-11-16 17:05 | disposition home or self-care (01) | DRG 776 ==
LOC: OPB 18:26 → 4S1 18:27 → 4E2 11-15 20:00
DX: O14.95 Unspecified pre-eclampsia, complicating the puerperium; Z91.030 Bee allergy status; Z88.2 Allergy status to sulfonamides